=== PATIENT | male | born 1985 | race Caucasian/White ===

== ENCOUNTER 2017-06-08 12:55 | Emergency (ER) | payer OTHER ==
[~2017-06-08 12:55] MED LIST: RANITIDINE HCL150 M1 PO; SEROQUEL XR200 MG PO; WELLBUTRIN SR150 MG PO; ZYRTEC PO
[2017-06-08] MEDS ORDERED: NO MEDICATIONS (12:58)
== END 2017-06-08 14:13 | disposition home or self-care (01) ==
LOC: SED 12:55
DX: L23.9 Allergic contact dermatitis, unspecified cause (principal)
CPT/HCPCS: 96372; 99282; J2930